=== PATIENT | male | born 1970 | race Caucasian/White ===

== ENCOUNTER → 2021-02-17 | Outpatient (CLI) | payer OTHER | LOC: MHCPAIN 08:30 | DX: M47.817 Spondylosis without myelopathy or radiculopathy, lumbosacral region (principal); M54.5 Low back pain; M53.3 Sacrococcygeal disorders, not elsewhere classified; G89.29 Other chronic pain | CPT/HCPCS: G0463 ==

== ENCOUNTER → 2021-02-25 | Outpatient (CLI) | payer OTHER | LOC: MHCPAIN 08:05 | DX: M47.817 Spondylosis without myelopathy or radiculopathy, lumbosacral region (principal); M54.5 Low back pain; M53.3 Sacrococcygeal disorders, not elsewhere classified ==

== ENCOUNTER → 2021-03-02 | Outpatient (CLI) | payer OTHER | LOC: MHCPAIN 14:47 | DX: M47.817 Spondylosis without myelopathy or radiculopathy, lumbosacral region (principal); M54.5 Low back pain; M53.3 Sacrococcygeal disorders, not elsewhere classified; G89.29 Other chronic pain | CPT/HCPCS: G0463 ==

== ENCOUNTER → 2021-04-01 | Outpatient (CLI) | payer OTHER | LOC: MHCPAIN 08:03 | DX: M47.817 Spondylosis without myelopathy or radiculopathy, lumbosacral region (principal); M54.5 Low back pain; M53.3 Sacrococcygeal disorders, not elsewhere classified | CPT/HCPCS: G0463 ==

== ENCOUNTER → 2021-04-22 | Outpatient (CLI) | payer OTHER | LOC: MHCPAIN 07:33 | DX: M47.817 Spondylosis without myelopathy or radiculopathy, lumbosacral region (principal); M54.5 Low back pain; M53.3 Sacrococcygeal disorders, not elsewhere classified | CPT/HCPCS: G0463; J1100; J2250; J3010 ==

== ENCOUNTER 2024-07-08 07:54 | Day surgery (SDC) | payer OTHER ==
[~2024-07-08] VITALS: Ht 157.5 cm; Wt 84.0 kg
[~2024-07-08 07:54] MED LIST: LR 1,000 ML IV SCH; Ondansetron 4 MG/2 ML VIAL IV PRN
[2024-07-08 09:04] VITALS: BP 139/95; PULSE 96; TEMP 98.3
--- NOTE | 2024-07-08 09:09 | NUR ---
Pt arrived with ; bowels WNL for the procedure per pt; VSS and RR even and unlabored; reviewed meds/history/allergies/pharm and updated; reviewed and signed procedure consent, no questions; to place IV and await procedure.
[2024-07-08] MEDS ORDERED: COZAAR100 MG PO (09:11)
[2024-07-08] MEDS ORDERED: HCTZ 25MG TAB25 MG PO (09:12)
[2024-07-08] MEDS ORDERED: NORVASC 5MG5 MG/TAB PO (09:13)
[2024-07-08] MEDS ORDERED: Glycopyrrolate 0.2 MG/ML 1 ML VIAL ONE (09:49)
[2024-07-08] MEDS ORDERED: Lidocaine PF 2% (20 MG/ML) 5 ML VIAL ONE (09:49)
[2024-07-08 10:57] VITALS: TEMP 98
[2024-07-08] MEDS ORDERED: PROTONIX 40MG T40 MG PO (10:59)
[2024-07-08 11:15] VITALS: BP 117/80; PULSE 89
[2024-07-08 11:30] VITALS: BP 114/78; PULSE 88
[2024-07-08 11:45] VITALS: BP 125/82; PULSE 85
--- NOTE | 2024-07-08 13:12 | NUR ---
1115 PATIENT RETURNS TO [facility] [place] [facility] VIA CART. PT AWAKE AND ALERT. RESPIRATIONS UNLABORED. AMBULATED TO RECLINER CHAIR WITH 2:1 SBA. PT DENIES NAUSEA OR ABDOMINAL PAIN. HOOKED UP TO MONITOR AND VS OBTAINED. CALL LIGHT AT SIDE AND MOTHER PRESENT. 1125 PATIENT TOLERATING JUICE AND CRACKERS, CHEESE WITHOUT NAUSEA OR DIFFICULTY SWALLOWING. 1135 IN ROOM SPEAKING WITH PATIENT. 1145 D/C INSTRUCTIONS REVIEWED WITH PATIENT. PT VERBALIZED UNDERSTANDING AND A COPY OF INSTRUCTIONS PROVIDED IN D/C FOLDER. 1150 PATIENT DRESSES SELF. 1155 PATIENT DISCHARGED FROM UNIT VIA W/C TO A PERSONAL VEHICLE. PT LEFT HOSPITAL IN STABLE CONDITION.
== END 2024-07-08 11:55 | disposition home or self-care (01) ==
LOC: SDCO 07:54
DX: Z12.11 Encounter for screening for malignant neoplasm of colon (principal); K21.00 Gastro-esophageal reflux disease with esophagitis, without bleeding; K29.30 Chronic superficial gastritis without bleeding; D12.0 Benign neoplasm of cecum; D12.2 Benign neoplasm of ascending colon; D12.3 Benign neoplasm of transverse colon; D12.5 Benign neoplasm of sigmoid colon; K64.0 First degree hemorrhoids; Z80.0 Family history of malignant neoplasm of digestive organs; Z87.891 Personal history of nicotine dependence; Z87.11 Personal history of peptic ulcer disease
CPT/HCPCS: J2704; J7120